=== PATIENT | male | born 1960 | race African-American/Black ===

== ENCOUNTER 2016-09-16 08:40 | Day surgery (SDC) | payer OTHER ==
--- NOTE | 2016-09-15 16:37 | PCM.ANEPRE ---
Anesthesia Pre-Op Review Reason for Review: STOP BANG 12/01 BMI37 Anesthesia Recommendations: Proceed with Procedure Additional Comments 56 yo man with one bout of svt without recurrance. othewise ok, w/ BMI 37. Ok to proceed with usual DOS evaluation. Chart Reviewed by: Robby Shea MD, MD Sep 15, 2016 16:37
[~2016-09-16] VITALS: Ht 180.3 cm; Wt 121.8 kg
[2016-09-16] VITALS (12 sets, daily range): BP systolic 117–163; BP diastolic 78–104; PULSE 67–104; RESP 13–18; O2SAT 92–98
[2016-09-16] MEDS: Lactated Ringer's 1,000 ML IV SCH ×6 (05:00→18:49)
[~2016-09-16 08:40] MED LIST: ALBU6.7H INH; CeFAZolin Inj 3 GM in Dextrose 5% Minibag Plus 50 ML IV ONE; ESOM40CA41 PO; EZET10TA PO; GLUC-120 PO; MOME13HF IH; OXYC5TAB72 PO; SILD100T PO; SIMV20TA4 PO; TAMS0.4C98 PO; ZINC50TA4 PO
[2016-09-16] MEDS ORDERED: Ondansetron 2 mg/mL 2 mL Inj ONE (08:41)
[2016-09-16] MEDS ORDERED: MeTOProlol 1 mg/mL 5 mL Inj ONE (08:41)
[2016-09-16] MEDS ORDERED: fentaNYL-PF 50 mCg/mL 2 mL Inj ONE (08:41)
[2016-09-16] MEDS ORDERED: Propofol 10,000 mCg/mL 20 mL Inj ONE (08:41)
[2016-09-16] MEDS ORDERED: MetoCLOpramide 5 mg/mL 2 mL Inj ONE (08:41)
[2016-09-16] MEDS ORDERED: CeFAZolin Inj 2 gm / 50mL D5W IV ONE (08:59)
[2016-09-16] MEDS ORDERED: Lactated Ringer's 1,000 ML IV SCH (11:25)
[2016-09-16] MEDS ORDERED: MetoCLOpramide 5 mg/mL 2 mL Inj IVPUSH PRN (11:25)
[2016-09-16] MEDS ORDERED: Ondansetron 2 mg/mL 2 mL Inj IVPUSH PRN ×2 (11:25→15:15)
[2016-09-16] MEDS ORDERED: Dexamethasone 4 mg/mL Inj IVPUSH PRN (11:25)
[2016-09-16] MEDS ORDERED: fentaNYL-PF 50 mCg/mL 2 mL Inj IVPUSH PRN (11:25)
[2016-09-16] MEDS ORDERED: Lactated Ringer's 500 ML IV PRN (11:25)
[2016-09-16] MEDS ORDERED: Phenylephrine 10,000 mCg/mL Inj IVPUSH PRN (11:25)
[2016-09-16] MEDS ORDERED: EPHEDrine Sulfate 50 mg/mL Inj IVPUSH PRN (11:25)
--- NOTE | 2016-09-16 11:25 | PCM.HPANE ---
Patient Data Surgeon Admitting Provider: Attending Provider:Andrez Adkins MD Primary Care Physician:Shauna Erickson PA-C Other Provider:Marielle Mercado Anesthesia Reason for Visit Left Knee Patella Tendon Rupture Ht/WT & BMI Height (Feet): 5 Height (Inches): 11 Weight (Kilograms): 120.565 Body Mass Index 37.00 Allergies Coded Allergies: alcohol (Unverified Allergy, Unknown, 09/16/16) Past Anesthesia History Anesthesia History: Denies:: Anesthesia Reactions, Malignant Hyperthermia Diabetes History Hx Diabetes?: No MRSA MRSA: No Medications Reported Medications Zinc Gluconate (Zinc)50 Mg Pcyhvr80 Mg PO DAILY 09/15/16 oxyCODONE 5 Mg Tablet5 Mg PO Q6H PRN For Pain Ref 0 09/15/16 Ezetimibe (Zetia)10 Mg Gfowax32 Mg PO DAILY 30 Days Ref 0 12/14/15 Sildenafil Citrate (Viagra)100 Mg [id number] Mg PO UD PRN erectile dysfunction Ref 0 12/14/15 Tamsulosin (Flomax)0.4 Mg Capsule0.4 Mg PO DAILY Ref 0 12/14/15 Simvastatin 20 Mg Kseezv78 Mg PO HS Ref 0 12/14/15 Albuterol Sulfate (Proventil HFA Inhaler)6.7 Gm Hfa.aer.ad2 Puff INH Q4 PRN For Shortness of Breath #1 INHALER Ref 0 12/14/15 Esomeprazole Magnesium (Nexium)40 Mg Capsule.dr40 Mg PO DAILY Ref 0 12/14/15 Gluc 2Kcl/Chondr/Celia Hy/Hy AC (Glucosamine & Chondroitin Cap)1 Each Capsule1 Each PO DAILY 12/14/15 Mometasone/Formoterol (Dulera 200 Mcg/5 Mcg Inhaler)13 Gm Hfa.aer.ad13 Gm IH BID 12/14/15 Discontinued Reported Medications Doxazosin (Cardura)8 Mg Tablet8 Mg PO HS Ref 0 12/14/15 [astelin] 137mcg No Conflict Check2 Sprays NASAL BID 12/14/15 History History of ENT Problems?: Yes HEENT History: Positive for:: Sinus Problem Hx of Heart Problems?: Yes Cardiovascular History: Positive for:: Irregular Heartbeat (HX OF 1 BOUT SVT) Denies:: Heart Murmur Hypertension (hyperlipidemia) Hx of Respiratory Problem?: Yes Respiratory History: Positive for:: Asthma (PFT 05/2010 WNL) Use of Inhalers / NEBS Denies:: Use of C-PAP Machine (SNORES) Hx Neurologic Problems?: Yes Other Neurological Pertinent: HX HSV Hx of GI Problems?: Yes Gastrointestinal History: Positive for:: Gall Bladder Disease (S/P SOHA) Gastroesphageal Reflux Hx of Problems?: Yes Other Pertinent History: C/OF LUTS ED Male Hx: Positive for:: Prostate Problems (BPH W/ LUTS) Denies:: Scrotal Mass Testicular Surgery Skin History: Denies:: History Skin Disorders? Pressure Ulcers Hx Musculoskeletal Problems?: Yes Musculoskeletal History: Positive for:: Musculoskeletal Trauma (RUPT. LT KNEE PATELLAR TENDON=CURRENT PROBLEM) Hx of Psycho/Social Problems?: No Hx Surgeries?: Yes (SOHA,LT LONG FINGER TRIGGER RELEASE) Hx Any Other Health Problems?: Yes Other History: Denies:: Cancer Endocrine Disease Hospitalization Thyroid Disease History Blood Transfusions: Denies:: Blood Transfusions Hx Diabetes: No Hx Alcohol Use: No Smoking Status: Never Smoker Have You Smoked inLast 12 mo: No Stop/Bang S-Snoring: Do You Snore Loudly: Yes T-Tired: feel tired, fatigued: Yes O-Obsered: Observed not breath: No P-Blood Pressure: treated: No B- Body Mass Index > 35 kg/m2: Yes A- Age over 50: Yes N- Neck Large Circumference: Yes G- Gender Male: Yes IRISH Total Score: 6 Risk Assessment Category Category 1A: Patient has history of documented sleep apnea, and HAS NOT received any narcotic, sedative or anesthesia administration during this stay. Category 1B: Patient has history of documented sleep apnea, and HAS received any narcotic , sedative or anesthesia administration during this stay Category 2: Patient has SUSPECTED Obstructive Sleep Apnea, and HAS received any narcotic , sedative or anesthesia administration during this stay. Category 3: Patient has SUSPECTED Obstructive Sleep Apnea and HAS NOT received narcotic, sedative or anesthesia administration during this stay. Category 4: Outpatient in Procedural Areas with known sleep apnea or who screen positive for High Risk via the STOP/BANG questionnaire. Exam Exam General Appearance: Alert, Oriented X3, Cooperative, No Acute Distress HEENT/AIRWAY: MP 3 Lungs: Clear to Auscultation Heart: Exam Unremarkable Plan Impression Patient chart reviewed, patient interviewed and anesthestic plan with risks, benefits, and alternatives discussed, and informed consent obtained. NPO Status: 12/16/152099 ASA Physical Status: ASA2 Mod Systemic Disease Anesthetic Plan: GA, Regional Block (fnb) Bene/Risks/Altern/Consents: Yes HP Complete Prior to Induction: Yes Ata Santamaria MD Sep 16, 2016 07:54
[2016-09-16] MEDS ORDERED: Bupivacaine-MPF 0.5% 30 mL Inj INFILTRATE ONE (11:48)
[2016-09-16] MEDS ORDERED: Gentamicin 40 mg/mL 2 mL Inj IRRIGATION ONE (11:48)
[2016-09-16] MEDS ORDERED: Albuterol-Ipratropium 3 mL Inhalation Solution ONE (14:58)
[2016-09-16] MEDS ORDERED: MeTOProlol 1 mg/mL 5 mL Inj IVPUSH PRN (15:00)
[2016-09-16] MEDS ORDERED: Albuterol-Ipratropium 3 mL Inhalation Solution NEB PRN (15:00)
--- NOTE | 2016-09-16 15:01 | PCM.ANEP1 ---
Post Anesthesia Phase 1 PACU Phase 1 Assessment Vital Signs Vital Signs Date Time Temp Pulse Resp B/P Pulse Ox O2 Delivery O2 Flow Rate FiO2 09/16/16 09:05 35.9 86 18 133/85 96 Room Air Anesthetic Administered: GA Level of Alertness: Sleepy, easy to arouse BRADY's with Equal Strength: Yes Pain: No Nausea or Vomiting: No Oxygen Delivery: Simple Mask Lungs: Wheezes Dermatome Level: Full Sensation Ata Santamaria MD Sep 16, 2016 15:01
[2016-09-16] MEDS ORDERED: diphenhydrAMINE 25 mg Capsule PO PRN (15:15)
[2016-09-16] MEDS ORDERED: Magnesium Hydroxide 10 mL Oral Concentration PO PRN (15:15)
[2016-09-16] MEDS: HYDROmorphone 1 mg/mL Inj IVPUSH PRN ×2 (15:15→15:20)
[2016-09-16] MEDS ORDERED: Sodium Biphos-Phos 133 mL Enema RECTAL PRN (15:15)
[2016-09-16] MEDS ORDERED: Polyethylene Glycol (PEG) 17 Gm Powder PO PRN (15:15)
--- NOTE | 2016-09-16 15:38 | PCM.ANEP2 ---
Post Anesthesia Evaluation ASA/CMS Post Anesthesia VS in Patient's Normal Range?: Yes Resp Stable; Airway Patent?: Yes CV Function & Hydration Stable: Yes Mental Status Recovered?: Yes Pain control Satisfactory?: Yes N/V Control Satisfactory?: Yes Ata Santamaria MD Sep 16, 2016 15:38
[2016-09-16] MEDS: Sodium Chloride LOK Flush 10 mL Syringe IV SCH ×2 (16:30→23:36)
--- NOTE | 2016-09-16 17:20 | NUR ---
Post op Pt to room at 1635 on [facility] for left patellar tendon repair. Pt very drowsy, but awakens to voice. Affected leg wrapped in andrew wrap with immobilizer and is C/D&I. Ice bag in place and knee on pillow. IV fluids infusing in surgical tubing, SCD on right leg, 4L NC. TRANSPORT SPECIALIST connected to pt. Pt denies nausea or pain at this time. Yellow socks on.
[2016-09-16] MEDS: CeFAZolin Inj 3 GM in Dextrose 5% 50 ML IV SCH (19:00)
[2016-09-16] MEDS: Senna-Docusate 8.6-50 mg Tablet PO SCH (20:29)
[2016-09-17 00:24] VITALS: BP 100/64; PULSE 90; RESP 16; O2SAT 93
[2016-09-17] MEDS: CeFAZolin Inj 3 GM in Dextrose 5% 50 ML IV SCH ×2 (01:29→11:51)
--- NOTE | 2016-09-17 03:03 | NUR ---
Pain Good pain control with po analgesia.VSS.Orthos WNL yet cont. to have slight numbness to left foot.Dressing CDI and immobilizer on.I&O qs.Ame. food w/o c/o nausea.Moving well ind. in bed.Sleeping soundly at this time and resting comfortably.Will cont. to monitor.
[2016-09-17] MEDS: Lactated Ringer's 1,000 ML IV SCH (07:00)
--- NOTE | 2016-09-17 07:44 | OP ---
[address] [address] OPERATIVE REPORT PATIENT: JULIA MARR : 1960 MR#: [id number] ADMIT: 09/16/2016 JOB ID: [id number] DATE OF SURGERY: 09/16/2016 PREOPERATIVE DIAGNOSIS(ES): Left inferior patellar tendon rupture off the tibial tuberosity. ICD 10 code is S86.128. POSTOPERATIVE DIAGNOSIS(ES): 1. Left inferior patellar tendon rupture off the tibial tuberosity. ICD 10 code is S86.128. 2. Medial and lateral retinacular traumatic tears left knee ICD-10 S83.8X2A 3. Tear of the medial and lateral joint capsule and joint synovium left knee. ICD 10 code T14.8 4. Repair of the medial and lateral retinaculum,joint capsule and synovium- complex layered closure. PROCEDURE: 1. Repair of the patellar tendon. CPT code - 87328 2. Avulsion off the tibial tuberosity with Arthrex suture 5.5 mm anchors and #2 FiberWire. 3. Repair complex layered closure involving the joint capsule, joint synovium and medial and lateral retinaculum. CPT code 17084 for wound up to 7.5 cm and an additional 10 cm of complex closure. CPT code 74369 x2. SURGEON: Andrez Adkins MD. ANIMAL TRAPPER: Siddharth Wharton PA-C. Siddharth Wharton was an integral portion of the procedure assisting with positioning of the leg and retraction for the repair. ANESTHESIA: General as well as femoral nerve block for postoperative analgesia. DRAINS: None. COMPLICATIONS: None. COUNTS: Sponge and needle count correct. INDICATIONS: This is a 56-year-old male who was playing a basketball, jumped up and sustained a rupture of the inferior patellar tendon off the tibial tuberosity. MRI documented the extent of the injury with complete avulsion of the entire patellar tendon off of the tibial tuberosity. PROCEDURE IN DETAIL: Prior to prepping the patient the length and position of the normal right patellar tendon and position of the inferior pole of the patella was measured and compared to the injured left knee for accurate positioning and tensioning of the repair. Under adequate general anesthesia, as well as a femoral nerve block, a well-padded tourniquet was applied to the left thigh. The left leg was prepped and draped in sterile fashion. The left leg was elevated, exsanguinated, tourniquet inflated to 300 mmHg. A longitudinal incision was fashioned from the level of the tibial tuberosity proximally to about the mid body of the patella. The patient was noted to have complete laceration of the joint synovium, joint capsule and medial and lateral retinaculum. The patient had a complete avulsion of the patellar tendon off the tibial tuberosity. The area over the tibial tuberosity was cleaned. The paratenon over the patellar tendon was incised and protected for later repair. The joint was thoroughly irrigated with antibiotic solution. Please note, the MRI scan did not indicate that there was any additional intra-articular pathology. The joint surfaces appear to be smooth. Attention was next turned to placement of the Arthrex 5.5 mm anchors with a #2 FiberWire. Each anchor hole was predrilled and then the 5.5 mm screw was screwed into position with a good bone bridge between the two anchors over the tibial tuberosity. There were two sutures per anchor. I performed a Krackow suture technique, utilizing four rows of Krackow sutures. The patellar tendon was then tensioned. Please note that I did measure the opposite leg for the average width of the tendon as well as the distance between the inferior pole of the patella and the tibial tuberosity compared on the right to the left. The knee was slightly flexed with the tendon tensioned prior to tying the suture. I waited to tie the suture until it was in extension but did flex it initially to check if there was any major gap and there was no major gap with slight flexion. The knee was placed back into extension and each of the four sutures were subsequently tied. In order to avoid irritation of the suture knots, the suture knots were then passed with a free needle underneath the edge of the tendon and tied and then clipped. Also please note, prior to tying the patellar tendon sutures, I did place all of the joint capsule and synovial sutures as well as portions of the retinacular sutures. Once the patellar tendon was tied each of those sutures were tied. A couple more sutures were then placed in the patellar retinaculum over the medial and lateral aspects. The joint capsule synovium and retinaculum were closed with #1 Vicryl. The peritenon was then closed over the patellar tendon with interrupted [id number]-[id number] sutures of 0-Vicryl. Tourniquet was released and minimal hemostasis was required. The subcutaneous layers were closed with some interrupted sutures of 2-0 Vicryl. 0.50% plain Marcaine was placed deep in the wound. Minimal hemostasis was required. The subcutaneous layers were closed some interrupted sutures of 3-0 Vicryl. The skin was reapproximated with justin. Permanent x-rays were taken with the knee in extension and also slightly flexed confirming good position of the patella in relationship to the tibial tuberosity. There was good position of the Arthrex 5.5 mm suture anchors. Xeroform dry sterile dressings were applied as well as a bulky dressing, cast padding, and the patient was placed in a range of motion knee brace and knee brace was locked in extension. The patient was taken to recovery room. Sponge and needle count correct. No complications. The patient had a relatively large procedure and he did require some additional pain medication. For comfort, we kept him overnight for observation. PLAN: The patient may be partial weightbearing with crutches and his long leg brace with the brace locked in extension. He needs to keep the wound clean and dry. He will follow up in the office in two weeks. He was given prescriptions for Percocet 10-325, Keflex 500 mg, Vistaril as well as Lovenox 40 mg subcutaneous daily for three weeks since he is a high risk for DVT as being a man of much larger stature, approximate 270 pounds, and some acute on chronic swelling in the legs. Anticipate patient should hopefully be able to be discharged to home tomorrow with some home health since his has had recent chemotherapy and is unable to provide all his hygiene. The patient will have the sutures clipped flush with the skin upon return.He is to keep his dressing intact and not lift the leg on his own. He is to keep the knee in full extension for 6 weeks to avoid the risk of pulling on the repair and potentially stretching or rupturing the repair. Needs to stay in his long leg brace in extension. Cc: [facility] Cc: Joe Abad
[2016-09-17] MEDS: Senna-Docusate 8.6-50 mg Tablet PO SCH (08:20)
[2016-09-17] MEDS: Sodium Chloride LOK Flush 10 mL Syringe IV SCH (08:20)
[2016-09-17 09:53] VITALS: BP 168/75; PULSE 113; RESP 20; O2SAT 95
--- NOTE | 2016-09-17 10:34 | PCM.PNORTH ---
Subjective Date of Service: Sep 17, 2016 Visit Information: Reason for Visit Left Knee Patella Tendon Rupture Surgery/Surgery Date left patellar tendon repair 09/16/2016 Post-Op Day # 1 Date of Admission: Hospital Day # Subjective Patient complains of incisional pain. He is anxious to go home. Physical therapy is in the room with him now. She states the brace has come down on the leg and needs to be adjusted. Postop General: No Shortness of Breath, No Chest Pain, Good Appetite Pain Management: PO Objective Exam Objective Patient is seen lying in bed. Flori from physical therapy is at bedside Vital Signs and I/O Vital Sign - Last Date Time Temp Pulse Resp B/P Pulse Ox O2 Delivery O2 Flow Rate FiO2 09/17/16 09:53 36.7 113 20 168/75 95 Room Air 09/17/16 00:24 3.00 Intake and Output 09/16/16 09/16/16 09/17/16 Cumulative From/Thru 15:00 23:00 07:00 09/15/16 09:55 - 09/17/16 06:15 Intake Total 1000 ml 670 ml 2124 ml 3794 ml Output Total 350 ml 1860 ml 2210 ml Balance 1000 ml 320 ml 264 ml 1584 ml Intake Oral 520 ml 1240 ml 1760 ml IV Total 1000 ml 150 ml 884 ml 2034 ml Output Urine Total 350 ml 1860 ml 2210 ml # Bowel Movements 0 0 General Appearance: Alert, Oriented X3, Cooperative, No Acute Distress Extremities: Distal Pulses Palpable, No Compartment Syndrom Noted, Tenderness/ Swelling Noted (at the surgical site, as expected) Postop Sensory Motor: Distal Motor Intact, NVI Distally SURGICAL WOUND : Wound Location/Description Left lower extremity: The knee brace has slid down the leg and Sam wraps have also slid down the leg. The brace is removed and readjusted. Sam wraps are removed. Surgical dressing is clean, dry and intact. Sam wraps were reapplied. Brace is reapplied. Dressing & Drainage Status: Intact Activity: Activity per PT Catheters: None Assessment & Plan Impression POD-1 status post left patellar tendon repair Problems: Plan Weightbearing: Partial weightbearing with knee in extension in brace at all times DVT prophylaxis: Lovenox 40 mg subcutaneous 3 weeks Physical therapy for transfers, progressive ambulation, therapeutic exercise, crutch training Wound care: Leave the dressing and splint in place for 2 weeks Discharge plan: Discharge home today Discharge instructions are reviewed with the patient. Activity: Keep leg straight at all times. Ice and elevate the leg as much as possible for the next 2 weeks Discharge medications include Lovenox 40 mgSQ 3 weeks Percocet 10/325 mg every 4-6 hours when necessary pain. Patient may cut tablets in half if he feels it is too much. Keflex 500 mg every 8 hours until they are gone Vistaril 25 mg 1 every 6 hours when necessary for spasms To shower, wrap a towel around the top of the leg and cover leg with trash bag and tape the top. If dressing should get soaked, it will need to be changed at the office as soon as possible. Follow-up plan: In 2 weeks at [facility] with JOSE for wound check and at [address] Adkins Pain Management: Oxycodone, Toradol VTE Prophylaxis: Sub-Q Enoxaparin, SCDs Resuscitation Status: CPR: Attempt Resuscitation [place] UniversityNava Campos PA-C Sep 17, 2016 10:34
--- NOTE | 2016-09-17 11:14 | PCM.DIOPOR ---
OP Ortho Discharge Instruction Dates of Hospitalization Date of Discharge: Sep 17, 2016 Providers Admitting Physician: Primary Care Physician: Shauna Erickson PA-C Attending Physician: Andrez Adkins MD Diagnosis at Time of Discharge Post operative diagnosis Status post left patellar tendon repair Diet Discharge Diet: No restrictions Activity Activity-General: Elevate & ice extremity Left Lower Extremity: Toe-Touch Weight Bearing (can touch the foot to the ground for balance) Discharge Assist Device: Crutches, Knee Brace (at at all times) Dressing and Incisional Care Dressing Care: Keep dressing clean, dry & intact Hygiene: May shower (see instructions below) Additional Instructions Discharge Instructions Activity: Keep leg straight at all times. Ice and elevate the leg as much as possible for the next 2 weeks Discharge medications include Lovenox 40 mgSQ 3 weeks Percocet 10/325 mg every 4-6 hours when necessary pain. Patient may cut tablets in half if he feels it is too much. Keflex 500 mg every 8 hours until they are gone Vistaril 25 mg 1 every 6 hours when necessary for spasms To shower, wrap a towel around the top of the leg and cover leg with trash bag and tape the top. If dressing should get soaked, it will need to be changed at the office as soon as possible. Follow Up Plan Follow Up Plan Follow-up plan: In 2 weeks at [facility] with JOSE for wound check and at [address] Adkins Call your provider for: Fever, Chills, Shortness of breath, Vomitting, Drainage at incision Nava Christy PA-C Sep 17, 2016 11:14
[2016-09-17] MEDS ORDERED: CEPH-512 PO (11:27)
[2016-09-17] MEDS ORDERED: ENOX40DI8 SUBQ (11:27)
[2016-09-17] MEDS ORDERED: HYDR25CA PO (11:27)
--- NOTE | 2016-09-17 13:00 | PCM.DC.ORT ---
Discharge Summary Date of Service: Sep 17, 2016 Date of Hospital Admission: Date of Surgery: Sep 16, 2016 Date of Discharge: Sep 17, 2016 Reason for Hospitalization: Left patellar tendon rupture Procedures Performed: Left patellar tendon repair Hospital Course: Patient was admitted to the hospital on 09/16/2016 and underwent the above procedure. The surgeon was Dr. Andrez Adkins. Patient tolerated the procedure well was transferred to recovery room in stable condition. Patient was admitted overnight for pain control. On postop day 1 patient mobilized well with physical therapy with partial weightbearing on crutches. Patient was discharged home in stable condition. He will follow up with us routinely 2 weeks postop Diagnosis at Time of Discharge Status post left patellar tendon repair Problems: Disposition: Discharged home with home health ordered Orthopedic Follow up Plan: In Two Weeks in my clinic Discharge Instructions: Activity: Keep leg straight at all times. Ice and elevate the leg as much as possible for the next 2 weeks Discharge medications include Lovenox 40 mgSQ 3 weeks Percocet 10/325 mg every 4-6 hours when necessary pain. Patient may cut tablets in half if he feels it is too much. Keflex 500 mg every 8 hours until they are gone Vistaril 25 mg 1 every 6 hours when necessary for spasms To shower, wrap a towel around the top of the leg and cover leg with trash bag and tape the top. If dressing should get soaked, it will need to be changed at the office as soon as possible. Albuterol Sulfate (Proventil HFA Inhaler) 6.7 Gm Hfa.aer.ad 2 PUFF INH Q4 PRN PRN For Shortness of Breath Cephalexin (Keflex) 500 Mg Capsule 500 MG PO TID Enoxaparin Sodium (Enoxaparin Sodium) 40 Mg/0.4 Ml Syringe 40 MG SUBQ Q24 Esomeprazole Magnesium (Nexium) 40 Mg Capsule.dr 40 MG PO DAILY Ezetimibe (Zetia) 10 Mg Tablet 10 MG PO DAILY Gluc 2Kcl/Chondr/Celia Hy/Hy AC (Glucosamine & Chondroitin Cap) 1 Each Capsule 1 EACH PO DAILY Hydroxyzine Pamoate (Vistaril) 25 Mg Capsule 25 MG PO Q6H PRN PRN For Spasm Mometasone/Formoterol (Dulera 200 Mcg/5 Mcg Inhaler) 13 Gm Hfa.aer.ad 13 GM IH BID Sildenafil Citrate (Viagra) 100 Mg Tablet 100 MG PO UD PRN PRN erectile dysfunction Simvastatin (Simvastatin) 20 Mg Tablet 20 MG PO HS Tamsulosin (Flomax) 0.4 Mg Capsule 0.4 MG PO DAILY Zinc Gluconate (Zinc) 50 Mg Tablet 50 MG PO DAILY Nava Christy PA-C Sep 17, 2016 13:00
--- NOTE | 2016-09-17 14:16 | NUR ---
PTEvaluation completed. Please go to "Notes" then click on "Assessments and Notes" (bottom left corner of screen). Then select appropriate discipline tab on top of screen.
--- NOTE | 2016-09-17 14:52 | NUR ---
DISCHARGE Patient's pain better controlled with oxycodone 10mg. Also gave IV toradol prior to working with PT. Left knee rewrapped with andrew wrap and knee immobilizer replaced by ortho PA. Able to mobilize with crutches, reminded of weight bearing status. Was set up for bed bath and patient cleaned up and got dressed sitting at bedside. Went over all new medications that were written. RX was faxed to [facility] in [place], prior to discharge. Transferred to wheelchair and was taken outside to friend's vehicle.
== END 2016-09-17 14:45 | disposition home or self-care (01) ==
LOC: SAS 08:40 → OSC 17:31 → SAS 09-17 14:45
PROVIDERS: ATTEND Orthopaedic Surgery
DX: S86.812A Strain of other muscle(s) and tendon(s) at lower leg level, left leg, initial encounter (principal); S76.112A Strain of left quadriceps muscle, fascia and tendon, initial encounter; S83.8X2A Sprain of other specified parts of left knee, initial encounter; X50.0XXA Overexertion from strenuous movement or load, initial encounter
CPT/HCPCS: 27380; 27385; 76001; 97162; J0690; J1170; J1580; J1650; J1885; J2250; J2405; J2765; J3010; J7120; J7620

== ENCOUNTER 2016-10-20 05:42 | Day surgery (SDC) | payer OTHER ==
[~2016-10-20] VITALS: Ht 180.3 cm; Wt 118.5 kg
[2016-10-20] VITALS (9 sets, daily range): BP systolic 93–144; BP diastolic 72–89; PULSE 79–89; RESP 12–16; O2SAT 93–100
[~2016-10-20 05:42] MED LIST changes: +CEPH-512 PO; -CeFAZolin Inj 3 GM in Dextrose 5% Minibag Plus 50 ML IV ONE; +ENOX40DI8 SUBQ; +HYDR25CA PO; -OXYC5TAB72 PO
[2016-10-20] MEDS ORDERED: Propofol 10,000 mCg/mL 20 mL Inj ONE (05:43)
[2016-10-20] MEDS ORDERED: Ondansetron 2 mg/mL 2 mL Inj ONE (05:43)
[2016-10-20] MEDS ORDERED: fentaNYL-PF 50 mCg/mL 2 mL Inj ONE (05:43)
[2016-10-20] MEDS ORDERED: Dexamethasone 4 mg/mL Inj ONE (05:43)
[2016-10-20] MEDS: Lactated Ringer's 1,000 ML IV SCH ×2 (06:49→07:27)
[2016-10-20] MEDS ORDERED: Lactated Ringer's 500 ML IV PRN (07:22)
[2016-10-20] MEDS ORDERED: Lactated Ringer's 1,000 ML IV SCH (07:22)
--- NOTE | 2016-10-20 07:22 | PCM.HPANE ---
Patient Data Surgeon Admitting Provider: Attending Provider:Medardo Mckenna DO Primary Care Physician:Shauna Erickson PA-C Other Provider:Marielle Mercado Anesthesia Reason for Visit Right Ring Trigger Finger Ht/WT & BMI Height (Feet): 5 Height (Inches): 11.00 Weight (Kilograms): 118.5 Body Mass Index 36.00 Allergies Coded Allergies: alcohol (Unverified Allergy, Unknown, 09/16/16) Past Anesthesia History Anesthesia History: Denies:: Anesthesia Reactions, Malignant Hyperthermia Diabetes History Hx Diabetes?: No MRSA MRSA: No Medications Hypertension Medication: No Home Meds Incl Beta Memo: No Reported Medications Ezetimibe (Zetia)10 Mg Lficyl71 Mg PO DAILY 30 Days Ref 0 12/14/15 Sildenafil Citrate (Viagra)100 Mg Vtpiai418 Mg PO UD PRN erectile dysfunction Ref 0 12/14/15 Tamsulosin (Flomax)0.4 Mg Capsule0.4 Mg PO DAILY Ref 0 12/14/15 Simvastatin 20 Mg Lfyhny67 Mg PO HS Ref 0 12/14/15 Albuterol Sulfate (Proventil HFA Inhaler)6.7 Gm Hfa.aer.ad2 Puff INH Q4 PRN For Shortness of Breath #1 INHALER Ref 0 12/14/15 Esomeprazole Magnesium (Nexium)40 Mg Capsule.dr40 Mg PO DAILY Ref 0 12/14/15 Mometasone/Formoterol (Dulera 200 Mcg/5 Mcg Inhaler)13 Gm Hfa.aer.ad13 Gm IH BID 12/14/15 Discontinued Reported Medications Zinc Gluconate (Zinc)50 Mg Tidejp94 Mg PO DAILY 09/15/16 Gluc 2Kcl/Chondr/Celia Hy/Hy AC (Glucosamine & Chondroitin Cap)1 Each Capsule1 Each PO DAILY 12/14/15 Discontinued Scripts Hydroxyzine Pamoate (Vistaril)25 Mg Obyrlnv72 Mg PO Q6H PRN For Spasm #40 CAPSULE Ref 0 Prov:Nava Christy PA-C 09/17/16 Cephalexin (Keflex)500 Mg Khkwuhp056 Mg PO TID #15 CAPSULE Ref 0 Prov:Nava Christy PA-C 09/17/16 Enoxaparin Sodium 40 Mg/0.4 Ml Zupolih67 Mg SUBQ Q24 #20 SYR Prov:Nava Christy PA-C 09/17/16 History History of ENT Problems?: No HEENT History: Positive for:: Sinus Problem Denies:: Abnormal Airway Cataracts Difficult Intubation Dysphagia Glaucoma Hearing Problem TMJ Denture Type: None Teeth Condition: Within Normal Limits Hx of Heart Problems?: Yes Cardiovascular History: Positive for:: Irregular Heartbeat (hx of one episode of SVT) Denies:: Heart Murmur Hypertension (hyperlipidemia) Hx of Respiratory Problem?: Yes Respiratory History: Positive for:: Asthma Use of Inhalers / NEBS Denies:: Pneumonia Tuberculosis Use of C-PAP Machine Hx Neurologic Problems?: No Neurological History: Denies:: CVA Headaches Multiple Sclerosis Parkinson's Disease Seizures Hx of GI Problems?: Yes Hx of Problems?: No Genitourinary History: Denies:: Kidney Stones Urinary Tract Infection Male Hx: Positive for:: Prostate Problems (BPH W/ LUTS) Denies:: Scrotal Mass Testicular Surgery Skin History: Denies:: History Skin Disorders? Pressure Ulcers Hx Musculoskeletal Problems?: Yes Musculoskeletal History: Positive for:: Musculoskeletal Trauma (right ring finger current admission problem) Hx of Psycho/Social Problems?: No Hx Surgeries?: Yes (SOHA,LT LONG FINGER TRIGGER RELEASE, l patellar tendon rupture) Hx Any Other Health Problems?: Yes Other History: Denies:: Cancer Endocrine Disease Hospitalization Thyroid Disease History Blood Transfusions: Denies:: Blood Transfusions Hx Diabetes: No Hx Alcohol Use: No Smoking Status: Never Smoker Have You Smoked inLast 12 mo: No Stop/Bang S-Snoring: Do You Snore Loudly: Yes T-Tired: feel tired, fatigued: Yes O-Obsered: Observed not breath: No P-Blood Pressure: treated: No B- Body Mass Index > 35 kg/m2: Yes A- Age over 50: Yes N- Neck Large Circumference: No G- Gender Male: Yes IRISH Total Score: 5 IRISH Risk Assessment: High Risk, =/>3 Yes Risk Assessment Category Category 1A: Patient has history of documented sleep apnea, and HAS NOT received any narcotic, sedative or anesthesia administration during this stay. Category 1B: Patient has history of documented sleep apnea, and HAS received any narcotic , sedative or anesthesia administration during this stay Category 2: Patient has SUSPECTED Obstructive Sleep Apnea, and HAS received any narcotic , sedative or anesthesia administration during this stay. Category 3: Patient has SUSPECTED Obstructive Sleep Apnea and HAS NOT received narcotic, sedative or anesthesia administration during this stay. Category 4: Outpatient in Procedural Areas with known sleep apnea or who screen positive for High Risk via the STOP/BANG questionnaire. Exam Exam Vital Signs Vital Signs Date Time Temp Pulse Resp B/P Pulse Ox O2 Delivery O2 Flow Rate FiO2 10/20/16 06:18 79 16 144/88 98 Room Air General Appearance: Alert, Oriented X3, Cooperative HEENT/AIRWAY: MP 3 Lungs: Clear to Auscultation Heart: Exam Unremarkable Meds/Labs/Diagnostics Admission Meds Current Medications Lactated Ringer's (Lr) 1,000 ml @ 10 mls/hr Q24H IV Last administered on t 06:49; Start 10/20/16 at 05:00; Stop 10/24/16 at 08:59 Plan Impression Patient chart reviewed, patient interviewed and anesthestic plan with risks, benefits, and alternatives discussed, and informed consent obtained. ASA Physical Status: ASA2 Mod Systemic Disease Anesthetic Plan: GA Bene/Risks/Altern/Consents: Yes HP Complete Prior to Induction: Yes Lorenzo Alfonso DO Oct 20, 2016 07:19
[2016-10-20] MEDS ORDERED: HYDROmorphone 1 mg/mL Inj IVPUSH PRN (07:25)
[2016-10-20] MEDS ORDERED: Ondansetron 2 mg/mL 2 mL Inj IVPUSH PRN (07:25)
[2016-10-20] MEDS ORDERED: fentaNYL-PF 50 mCg/mL 2 mL Inj IVPUSH PRN (07:25)
[2016-10-20] MEDS ORDERED: HYDROcodone-APAP 5-325 mg Tablet PO PRN (07:25)
[2016-10-20] MEDS ORDERED: Phenylephrine 10,000 mCg/mL Inj IVPUSH PRN (07:25)
[2016-10-20] MEDS ORDERED: MetoCLOpramide 5 mg/mL 2 mL Inj IVPUSH PRN (07:25)
[2016-10-20] MEDS ORDERED: Dexamethasone 4 mg/mL Inj IVPUSH PRN (07:25)
[2016-10-20] MEDS ORDERED: EPHEDrine Sulfate 50 mg/mL Inj IVPUSH PRN (07:25)
[2016-10-20] MEDS ORDERED: Lidocaine 1%-Epi 1:100,000 20 mL Inj INJ ONE (07:36)
--- NOTE | 2016-10-20 08:58 | OP ---
[address] [address] OPERATIVE REPORT PATIENT: JULIA MARR : 1960 MR#: [id number] ADMIT: 10/20/2016 JOB ID: [id number] DATE OF SURGERY: 10/20/2016 PREOPERATIVE DIAGNOSIS(ES): Right ring finger trigger finger. POSTOPERATIVE DIAGNOSIS(ES): Right ring finger trigger finger. PROCEDURE: Right ring finger A1 jon release. SURGEON: Medardo Mckenna D.O. ANESTHESIA: General. HISTORY: The patient is a 56-year-old male that presented to me initially with trigger fingers to both of his hands. The left side was the most symptomatic, and he underwent a trigger finger release after failure of conservative treatment including injections. Over the year prior, he did well with the left hand, and at that time, also received injection to his right ring finger which was doing well up until a few months ago. He returns to the clinic with recurrent catching and locking of the ring finger to the right hand. I discussed with the patient, at this point, the risks, benefits, alternatives and indications to proceed with either a repeat injection versus surgery. He opted to proceed with surgery for a release as he was currently at home recuperating also from a recent patellar tendon injury and wanted to get this addressed while he still was off of work. He understood the risks, benefits, alternatives and indications as he has had the same procedure performed on the contralateral hand. All questions were answered. Consent was signed and placed in chart. PROCEDURE IN DETAIL: The patient was brought to the operative suite and placed supine on the operating table. Surgical time-out was performed. Everyone in the room was in agreement. After appropriate anesthesia was obtained, a right upper arm tourniquet was applied. The right upper extremity was prepped and draped in a sterile fashion. Right upper extremity was then exsanguinated and the tourniquet inflated to 250 mmHg. A crease within the palm directly overlying the ring finger A1 jon was identified. The crease was utilized for the skin incision measuring approximately 1.5 cm in length. Dissection was carried down through the flexor tendon sheath and the A1 jon. Care was taken to protect the neurovascular bundles on the radial and ulnar margins. The A1 jon was identified and incised longitudinally in line with the underlying flexor tendons. After full release of the A1 jon was identified, copious irrigation was performed and the skin closed with 5-0 nylon in a simple interrupted fashion. The patient was then placed in a bulky soft dressing. ESTIMATED BLOOD LOSS: Less 1 cc. COMPLICATIONS: None. DISPOSITION: The patient tolerated the procedure well. Anesthesia was reversed. The patient was transferred back to recovery. POSTOPERATIVE PLAN: The patient followup in my office in two weeks. We will remove the patient's sutures at that time. Then start working on range of motion and scar mobilization.
--- NOTE | 2016-10-20 09:18 | PCM.ANEP1 ---
Post Anesthesia Phase 1 PACU Phase 1 Assessment Vital Signs Vital Signs Date Time Temp Pulse Resp B/P Pulse Ox O2 Delivery O2 Flow Rate FiO2 10/20/16 08:29 89 14 139/79 95 Room Air 10/20/16 08:20 36.8 84 12 128/89 93 Room Air 10/20/16 08:15 88 13 134/77 95 Room Air 10/20/16 08:10 85 13 127/74 100 Simple Mask 8 10/20/16 08:05 84 12 106/77 100 Simple Mask 8 10/20/16 08:00 83 13 93/73 100 Simple Mask 8 10/20/16 07:55 36.3 88 13 139/72 100 Simple Mask 8 10/20/16 06:18 79 16 144/88 98 Room Air Anesthetic Administered: GA Level of Alertness: Sleeping, hard to arouse BRADY's with Equal Strength: Yes Pain: No Nausea or Vomiting: No Cardiovascular Function and Hy: Yes Airway Device: Oralpharangeal Airway Oxygen Delivery: Simple Mask Lungs: Clear to Auscultation Complications: No Follow up Care: No Patient Instructions Provided: Yes Lorenzo Alfonso DO Oct 20, 2016 09:18
== END 2016-10-20 23:59 | disposition home or self-care (01) ==
LOC: SAS 05:42
PROVIDERS: ATTEND Orthopaedic Surgery
DX: M65.341 Trigger finger, right ring finger (principal); N40.0 Benign prostatic hyperplasia without lower urinary tract symptoms
CPT/HCPCS: 26055; J1100; J2405; J3010; J7120